=== PATIENT | female | born 1980 | race Caucasian/White ===

== ENCOUNTER 2020-09-10 00:37 | Emergency (ER) | payer SELFPAY ==
--- NOTE | 2020-09-10 01:09 | ERPHSYRPT ---
- History of Present Illness Source: patient Exam Limitations: no limitations Patient Subjective Stated Complaint: pt states she had an arguement with her ex earlier this evening and has been having thoughts of hurting herself. denies having a plan. also c/o pain in her rt ovary Triage Nursing Assessment: pt alert and oriented, answers questions approp. pt brought in by law enforcement.pt ambualted into room with steady gait noted. respirations nonlabored with lungs cta. pt tearful at times. skin warm and dry. Timing/Duration: yesterday Severity of Symptoms-Max: moderate Severity of Symptoms-Current: moderate Context related to: significant other Suicidal thoughts: other (Suicidal ideation) Previous symptoms: no prior history Hx Tetanus, Diphtheria Vaccination/Date Given: Yes Hx Influenza Vaccination/Date Given: No Hx Pneumococcal Vaccination/Date Given: No Immunizations Up to Date: Yes - History of Present Illness Time Seen by Provider: 09/10/20 01:09 Physician History: This is a 39-year-old white female who was in an argument with her ex and threatened to harm herself. She has had suicidal ideations. According to family members she was going to take a large number of pills. Patient denies this. However we did get a call from another family member that stated there was several ibuprofen missing from the bottle. When confronted with the possibility of this the patient denies ingestion of any medication or pills. Patient states that she took 3 ibuprofen 200 mg for the right ovarian pain and a single melatonin to help with sleep. Complains of some right ovarian pain. She is approximately 2 weeks out from her last menstrual period. Her appendix is still present. Patient has had a hysterectomy in the past. Patient was brought in by the Police Department. (SCOOBY RUIZ) Allergies/Adverse Reactions: No Known Drug Allergies Allergy (Verified 09/10/20 01:19) Home Medications: No Reportable Medications [No Reported Medications] 09/10/20 [History] Travel Risk - International Travel Have you traveled outside of the country in past 3 weeks: No - Coronavirus Screening Are you exhibiting any of the following symptoms?: No Close contact with a COVID-19 positive Pt in past 14-21 Days: No - Past Medical History Pertinent Past Medical History: Yes Neurological History: No Pertinent History ENT History: No Pertinent History Cardiac History: No Pertinent History Respiratory History: No Pertinent History Endocrine Medical History: No Pertinent History Musculoskeletal History: No Pertinent History GI Medical History: No Pertinent History History: No Pertinent History Psycho-Social History: No Pertinent History Female Reproductive Disorders: No Pertinent History Other Medical History: gi bleed last year - Past Surgical History Past Surgical History: Yes Neuro Surgical History: No Pertinent History Cardiac: No Pertinent History Respiratory: No Pertinent History Gastrointestinal: Cholecystectomy Genitourinary: No Pertinent History Musculoskeletal: No Pertinent History Female Surgical History: Hysterectomy - Social History Smoking Status: Never smoker Exposure to second hand smoke: No Drug Use: none Patient Lives Alone: Yes (staying with mom now) - Female History Hx Last Menstrual Period: hyster Hx Now: No - Review of Systems Constitutional: No Symptoms Eyes: No Symptoms Ears, Nose, & Throat: No Symptoms Respiratory: No Symptoms Cardiac: No Symptoms Abdominal/Gastrointestinal: No Symptoms Genitourinary Symptoms: No Symptoms Musculoskeletal: No Symptoms Skin: No Symptoms Neurological: No Symptoms Psychological: Depression, Suicidal Ideations Endocrine: No Symptoms Hematologic/Lymphatic: No Symptoms Immunological/Allergic: No Symptoms All Other Systems: Reviewed and Negative - Physical Exam General Appearance: no apparent distress, alert, anxiety Eyes, Ears, Nose, Throat Exam: normal ENT inspection, moist mucous membranes Neck Exam: normal inspection, non-tender, supple, full range of motion Respiratory Exam: normal breath sounds, lungs clear, airway intact, No chest tenderness, No respiratory distress Cardiovascular Exam: regular rate/rhythm, normal heart sounds, normal peripheral pulses Gastrointestinal/Abdominal Exam: soft, normal bowel sounds, tenderness (Right suprapubic region.) Extremities Exam: normal inspection, normal range of motion, No evidence of injury Current Suicidality: denies suicide plan Neurological Exam: alert, normal mood/affect, calm, communications attendant II-XII nml as tested, oriented x 3, agitated, anxious Appearance: appropriate appearance, appropriate insight, no memory impairment Behavior/Eye Contact/Speech: alert & cooperative, good eye contact Thoughts/Hallucinations: normal thought pattern, no apparent hallucination Skin Exam: normal color, warm, dry SpO2 Interpretation: normal SpO2: 97 O2 Delivery: Room Air - Nursing Vital Signs Nursing Vital Signs: Initial Vital Signs Temperature 98.1 F 09/10/20 00:41 Pulse Rate 103 H 09/10/20 00:41 Respiratory Rate 18 09/10/20 00:41 Blood Pressure 134/76 09/10/20 00:41 O2 Sat by Pulse Oximetry 97 09/10/20 00:41 Pain Scale Pain Intensity 0 - Course Nursing assessment & vital signs reviewed: Yes EKG Interpreted by Me: RATE (92), Sinus Rhythm, NORMAL AXIS, NORMAL INTERVALS, NORMAL QRS, Other (No comparison EKG available.) Ordered Tests: Active Orders 24 hr Category Date Time Status Clean Catch Urine Specimen STAT Care 09/10/20 01:11 Completed EKG-ER Only STAT Care 09/10/20 01:11 Completed IV Insertion STAT Care 09/10/20 01:10 Completed Psychiatric Consult STAT Cons 09/10/20 01:11 Completed ABDOMEN AND PELVIS W/0 CONTRAS [CT] Stat Exams 09/10/20 02:06 Completed ACETAMINOPHEN Stat Lab 09/10/20 01:45 Completed AMYLASE Stat Lab 09/10/20 01:45 Completed CBC W DIFF Stat Lab 09/10/20 01:45 Completed CMP Stat Lab 09/10/20 01:45 Completed ETHYL ALCOHOL Stat Lab 09/10/20 01:45 Completed HCG,QUALITATIVE URINE Stat Lab 09/10/20 02:13 Completed LIPASE Stat Lab 09/10/20 01:45 Completed Lactic Acid Stat Lab 09/10/20 01:45 Completed SALICYLATE Stat Lab 09/10/20 01:45 Completed UA W/RFX UR CULTURE Stat Lab 09/10/20 02:13 Completed Urine Triage Profile Stat Lab 09/10/20 02:13 Completed Medication Summary Discontinued Medications Generic Name Dose Route Start Last Admin Trade Name Tipq PRN Reason Stop Dose Admin Acetaminophen 650 mg 09/10/20 04:56 09/10/20 04:59 Tylenol 325 Mg PO 09/10/20 04:57 650 mg STAT STA Administration Acetaminophen Confirm 09/10/20 04:58 Tylenol 325 Mg Administered 09/10/20 04:59 Dose 650 mg .ROUTE .STK-MED ONE Hydromorphone HCl 1 mg 09/10/20 01:10 09/10/20 02:06 Hydromorphone 1 Mg/Ml Injection IV 09/10/20 01:11 1 mg STAT ONE Administration Hydromorphone HCl Confirm 09/10/20 01:55 Hydromorphone 1 Mg/Ml Injection Administered 09/10/20 01:56 Dose 1 mg .ROUTE .STK-MED ONE Sodium Chloride 1,000 mls @ 999 mls/hr 09/10/20 01:10 09/10/20 08:22 Sodium Chloride 0.9% 1000 Ml IV 09/10/20 02:10 Infused .Q1H1M STA Infusion Sodium Chloride Confirm 09/10/20 01:55 Sodium Chloride 0.9% 1000 Ml Administered 09/10/20 01:56 Dose 1,000 mls @ ud .ROUTE .STK-MED ONE Ondansetron HCl 4 mg 09/10/20 01:11 09/10/20 02:05 Zofran 4 Mg/2 Ml Vial IV 09/10/20 01:12 4 mg STAT ONE Administration Ondansetron HCl 4 mg 09/10/20 01:10 09/10/20 02:04 Zofran 4 Mg/2 Ml Vial IV 09/10/20 01:11 Not Given STAT ONE Ondansetron HCl Confirm 09/10/20 01:55 Zofran 4 Mg/2 Ml Vial Administered 09/10/20 01:56 Dose 4 mg .ROUTE .STK-MED ONE Pantoprazole Sodium 40 mg 09/10/20 01:14 09/10/20 02:05 Protonix 40 Mg Iv IV 09/10/20 01:15 40 mg STAT ONE Administration Pantoprazole Sodium Confirm 09/10/20 01:55 Protonix 40 Mg Iv Administered 09/10/20 01:56 Dose 40 mg IV .STK-MED ONE Lab/Rad Data: Laboratory Result Diagrams 09/10/20 01:45 09/10/20 01:45 Laboratory Results 09/10/20 09/10/20 09/10/20 Range/Units 02:13 02:13 02:13 WBC (4.0-10.5) K/mm3 RBC (4.1-5.4) M/mm3 Hgb (12.0-16.0) gm/dl Hct (35-47) % MCV (78-100) fl MCH (26-32) pg MCHC (32-36) g/dl RDW (11.5-14.0) % Plt Count (150-450) K/mm3 MPV (7.5-11.0) fl Gran % (36.0-66.0) % Eos # (Auto) (0-0.5) Absolute Lymphs (auto) (1.0-4.6) Absolute Monos (auto) (0.0-1.3) Lymphocytes % (24.0-44.0) % Monocytes % (0.0-12.0) % Eosinophils % (0.00-5.0) % Basophils % (0.0-0.4) % Absolute Granulocytes (1.4-6.9) Basophils # (0-0.4) Sodium (137-145) mmol/L Potassium (3.5-5.1) mmol/L Chloride (98-107) mmol/L Carbon Dioxide (22-30) mmol/L Anion Gap (5-15) MEQ/L BUN (7-17) mg/dL Creatinine (0.52-1.04) mg/dL Estimated GFR ML/MIN Glucose (74-106) mg/dL Lactic Acid (0.4-2.0) Calcium (8.4-10.2) mg/dL Total Bilirubin (0.2-1.3) mg/dL AST (14-36) U/L ALT (0-35) U/L Alkaline Phosphatase (38-126) U/L Serum Total Protein (6.3-8.2) g/dL Albumin (3.5-5.0) g/dL Amylase (30-110) U/L Lipase (23-300) U/L Urine Color YELLOW (YELLOW) Urine Appearance SLIGHTLY CLOUDY (CLEAR) Urine pH 5.0 (5-6) Ur Specific [place] 1.024 (1.005-1.025) Urine Protein 30 (Negative) Urine Ketones NEGATIVE (NEGATIVE) Urine Blood NEGATIVE (0-5) Vega/ul Urine Nitrite NEGATIVE (NEGATIVE) Urine Bilirubin NEGATIVE (NEGATIVE) Urine Urobilinogen NEGATIVE (0-1) mg/dL Ur Leukocyte Esterase NEGATIVE (NEGATIVE) Urine WBC (Auto) 3-5 (0-5) /HPF Urine RBC (Auto) 0-2 (0-2) /HPF U Hyaline Cast (Auto) 26-50 (0-2) /LPF U Epithel Cells (Auto) RARE (FEW) /HPF Urine Bacteria (Auto) RARE (NEGATIVE) /HPF Urine Mucus (Auto) SLIGHT (NEGATIVE) /HPF Urine Culture Reflexed NO (NO) Urine Glucose NEGATIVE (NEGATIVE) mg/dL Urine HCG, Qual NEGATIVE (Negative) Salicylates (2-20) mg/dL Urine Opiates Level NEGATIVE (NEGATIVE) Ur Methadone NEGATIVE (NEGATIVE) Acetaminophen (10-30) ug/ml Urine Barbiturates NEGATIVE (NEGATIVE) Ur Phencyclidine (PCP) NEGATIVE (NEGATIVE) Urine Amphetamine NEGATIVE (NEGATIVE) U Benzodiazepine Level NEGATIVE (NEGATIVE) Urine Cocaine NEGATIVE (NEGATIVE) Urine Marijuana (THC) NEGATIVE (NEGATIVE) Ethyl Alcohol (0-10) mg/dL 09/10/20 09/10/20 09/10/20 Range/Units 01:45 01:45 01:45 WBC (4.0-10.5) K/mm3 RBC (4.1-5.4) M/mm3 Hgb (12.0-16.0) gm/dl Hct (35-47) % MCV (78-100) fl MCH (26-32) pg MCHC (32-36) g/dl RDW (11.5-14.0) % Plt Count (150-450) K/mm3 MPV (7.5-11.0) fl Gran % (36.0-66.0) % Eos # (Auto) (0-0.5) Absolute Lymphs (auto) (1.0-4.6) Absolute Monos (auto) (0.0-1.3) Lymphocytes % (24.0-44.0) % Monocytes % (0.0-12.0) % Eosinophils % (0.00-5.0) % Basophils % (0.0-0.4) % Absolute Granulocytes (1.4-6.9) Basophils # (0-0.4) Sodium 137 (137-145) mmol/L Potassium 3.3 L (3.5-5.1) mmol/L Chloride 102 (98-107) mmol/L Carbon Dioxide 28 (22-30) mmol/L Anion Gap 10.3 (5-15) MEQ/L BUN 10 (7-17) mg/dL Creatinine 0.74 (0.52-1.04) mg/dL Estimated GFR > 60.0 ML/MIN Glucose 110 H (74-106) mg/dL Lactic Acid 2.2 H (0.4-2.0) Calcium 9.6 (8.4-10.2) mg/dL Total Bilirubin 0.60 (0.2-1.3) mg/dL AST 29 (14-36) U/L ALT 32 (0-35) U/L Alkaline Phosphatase 61 (38-126) U/L Serum Total Protein 8.1 (6.3-8.2) g/dL Albumin 4.5 (3.5-5.0) g/dL Amylase 55 (30-110) U/L Lipase 81 (23-300) U/L Urine Color (YELLOW) Urine Appearance (CLEAR) Urine pH (5-6) Ur Specific [place] (1.005-1.025) Urine Protein (Negative) Urine Ketones (NEGATIVE) Urine Blood (0-5) Vega/ul Urine Nitrite (NEGATIVE) Urine Bilirubin (NEGATIVE) Urine Urobilinogen (0-1) mg/dL Ur Leukocyte Esterase (NEGATIVE) Urine WBC (Auto) (0-5) /HPF Urine RBC (Auto) (0-2) /HPF U Hyaline Cast (Auto) (0-2) /LPF U Epithel Cells (Auto) (FEW) /HPF Urine Bacteria (Auto) (NEGATIVE) /HPF Urine Mucus (Auto) (NEGATIVE) /HPF Urine Culture Reflexed (NO) Urine Glucose (NEGATIVE) mg/dL Urine HCG, Qual (Negative) Salicylates < 1.0 L (2-20) mg/dL Urine Opiates Level (NEGATIVE) Ur Methadone (NEGATIVE) Acetaminophen < 10 L (10-30) ug/ml Urine Barbiturates (NEGATIVE) Ur Phencyclidine (PCP) (NEGATIVE) Urine Amphetamine (NEGATIVE) U Benzodiazepine Level (NEGATIVE) Urine Cocaine (NEGATIVE) Urine Marijuana (THC) (NEGATIVE) Ethyl Alcohol < 10 (0-10) mg/dL 09/10/20 Range/Units 01:45 WBC 9.9 (4.0-10.5) K/mm3 RBC 4.62 (4.1-5.4) M/mm3 Hgb 15.2 (12.0-16.0) gm/dl Hct 43.1 (35-47) % MCV 93.3 (78-100) fl MCH 32.9 H (26-32) pg MCHC 35.3 (32-36) g/dl RDW 12.2 (11.5-14.0) % Plt Count 281 (150-450) K/mm3 MPV 11.0 (7.5-11.0) fl Gran % 80.8 H (36.0-66.0) % Eos # (Auto) 0.08 (0-0.5) Absolute Lymphs (auto) 1.10 (1.0-4.6) Absolute Monos (auto) 0.72 (0.0-1.3) Lymphocytes % 11.1 L (24.0-44.0) % Monocytes % 7.2 (0.0-12.0) % Eosinophils % 0.8 (0.00-5.0) % Basophils % 0.1 (0.0-0.4) % Absolute Granulocytes 8.03 H (1.4-6.9) Basophils # 0.01 (0-0.4) Sodium (137-145) mmol/L Potassium (3.5-5.1) mmol/L Chloride (98-107) mmol/L Carbon Dioxide (22-30) mmol/L Anion Gap (5-15) MEQ/L BUN (7-17) mg/dL Creatinine (0.52-1.04) mg/dL Estimated GFR ML/MIN Glucose (74-106) mg/dL Lactic Acid (0.4-2.0) Calcium (8.4-10.2) mg/dL Total Bilirubin (0.2-1.3) mg/dL AST (14-36) U/L ALT (0-35) U/L Alkaline Phosphatase (38-126) U/L Serum Total Protein (6.3-8.2) g/dL Albumin (3.5-5.0) g/dL Amylase (30-110) U/L Lipase (23-300) U/L Urine Color (YELLOW) Urine Appearance (CLEAR) Urine pH (5-6) Ur Specific [place] (1.005-1.025) Urine Protein (Negative) Urine Ketones (NEGATIVE) Urine Blood (0-5) Vega/ul Urine Nitrite (NEGATIVE) Urine Bilirubin (NEGATIVE) Urine Urobilinogen (0-1) mg/dL Ur Leukocyte Esterase (NEGATIVE) Urine WBC (Auto) (0-5) /HPF Urine RBC (Auto) (0-2) /HPF U Hyaline Cast (Auto) (0-2) /LPF U Epithel Cells (Auto) (FEW) /HPF Urine Bacteria (Auto) (NEGATIVE) /HPF Urine Mucus (Auto) (NEGATIVE) /HPF Urine Culture Reflexed (NO) Urine Glucose (NEGATIVE) mg/dL Urine HCG, Qual (Negative) Salicylates (2-20) mg/dL Urine Opiates Level (NEGATIVE) Ur Methadone (NEGATIVE) Acetaminophen (10-30) ug/ml Urine Barbiturates (NEGATIVE) Ur Phencyclidine (PCP) (NEGATIVE) Urine Amphetamine (NEGATIVE) U Benzodiazepine Level (NEGATIVE) Urine Cocaine (NEGATIVE) Urine Marijuana (THC) (NEGATIVE) Ethyl Alcohol (0-10) mg/dL - Progress Progress: unchanged, re-examined Counseled pt/family regarding: lab results, diagnosis, rad results - Progress Progress Note: 09/10/20 03:00 CAT scan of the abdomen pelvis without contrast reveals no acute intra-abdominal or intrapelvic inflammatory process. There is no acute intra-abdominal process present. 09/10/20 06:46 Medical decision making: This patient has suicidal ideation. She does not have a specific plan. However, she did tell her family that she may hang herself or take a bunch of pills. Family was concerned that she might have taken multiple ibuprofen because there was a bottle open and several ibuprofen were missing. However the patient denies this. Poison Control Center was consulted and patient was to be observed in the emergency department for 6 hours from the time of patient arrival here to the emergency department. If medically cleared after that point, which she is now, we can seek placement of the patient into an inpatient psychiatric facility. We will place her under emergency intermediate. Transfer of care to Dr. Middleton at shift change. He will make final disposition (SCOOBY RUIZ) 09/10/20 08:45 Dr. Serrano at [facility] accepted pt. NINA papers sent to to sign. Pt became somewhat upset when I talked to her at shift change because she did not want to go to a psychiatric facility and denied suicidal ideation. According to Dr. Ruiz/staff, pt expressed suicidal ideations upon presentation. 09/10/20 13:17 NINA signed by . Pt stable when care assumed by ambulance service. (KATELYN MIDDLETON) - Departure Departure Disposition: Transfer Critical Care Time: No - Departure Clinical Impression: Suicidal ideation Condition: Stable Referrals: DOCTOR,NO FAMILY [Primary Care Provider] -
[2020-09-10] MEDS ORDERED: Hydromorphone 1 mg/ml Injection IV ONE (01:10)
[2020-09-10] MEDS ORDERED: Sodium Chloride 0.9% 1000 ML 1,000 ML IV STA (01:10)
[2020-09-10] MEDS ORDERED: Zofran 4 MG/2 ML VIAL IV ONE ×2 (01:10→01:11)
[2020-09-10] MEDS ORDERED: PROTONIX 40 MG IV IV ONE ×2 (01:14→01:55)
[2020-09-10 01:51] LABS: Absolute Neutrophil Ct (ANC) 8.03 (1.4-6.9); BASOPHIL % 0.1 % (0.0-0.4); Basophil (Absolute #) 0.01 (0-0.4); Eosinophil % 0.8 % (0.00-5.0); Eosinophil (Absolute #) 0.08 (0-0.5); Hematocrit 43.1 % (35-47); Hemoglobin 15.2 gm/dl (12.0-16.0); Lymphocytes % 11.1 % (24.0-44.0); Mean Cell Volume 93.3 fl (78-100); Mean Corpuscular Hemoglobin 32.9 pg (26-32); Mean Corpuscular Hgb Concent. 35.3 g/dl (32-36); Monocyte (Absolute #) 0.72 (0.0-1.3); Monocytes % 7.2 % (0.0-12.0); Neutrophil % 80.8 % (36.0-66.0); Platelet Count 281 K/mm3 (150-450); Red Blood Count 4.62 M/mm3 (4.1-5.4); Red Cell Distribution Width 12.2 % (11.5-14.0); White Blood Count 9.9 K/mm3 (4.0-10.5)
[2020-09-10] MEDS ORDERED: Sodium Chloride 0.9% 1000 ML 1,000 ML ONE (01:55)
[2020-09-10] MEDS ORDERED: Zofran 4 MG/2 ML VIAL ONE (01:55)
[2020-09-10] MEDS ORDERED: Hydromorphone 1 mg/ml Injection ONE (01:55)
[2020-09-10 02:11] LABS: ALBUMIN 4.5 g/dL (3.5-5.0); ALKALINE PHOSPHATASE 61 U/L (38-126); AMYLASE 55 U/L (30-110); ANION GAP 10.3 MEQ/L (5-15); BLOOD UREA NITROGEN 10 mg/dL (7-17); CHLORIDE 102 mmol/L (98-107); Calcium 9.6 mg/dL (8.4-10.2); Carbon Dioxide 28 mmol/L (22-30); Creatinine 1 0.74 mg/dL (0.52-1.04); EST GLOMERULAR FILTRATION RATE > 60.0 ML/MIN; Glucose 110 mg/dL (74-106); LIPASE 81 U/L (23-300); Potassium 3.3 mmol/L (3.5-5.1); SGOT/AST 29 U/L (14-36); SGPT/ALT 32 U/L (0-35); SODIUM 137 mmol/L (137-145); Total Protein 8.1 g/dL (6.3-8.2)
[2020-09-10 02:19] LABS: ACETAMINOPHEN < 10 ug/ml (10-30); ETHYL ALCOHOL < 10 mg/dL (0-10); SALICYLATE < 1.0 mg/dL (2-20)
[2020-09-10 02:22] LABS: Appearance SLIGHTLY CLOUDY (CLEAR); Bacteria RARE /HPF (NEGATIVE); Bilirubin NEGATIVE (NEGATIVE); Blood NEGATIVE Ery/ul (0-5); Epithelial Cells RARE /HPF (FEW); Glucose NEGATIVE (NEGATIVE); Hyaline Casts 26-50 /LPF (0-2); Ketones NEGATIVE (NEGATIVE); Leukocyte Esterase NEGATIVE (NEGATIVE); Mucus SLIGHT /HPF (NEGATIVE); Nitrite NEGATIVE (NEGATIVE); Protein,Urine Dip 30 (Negative); RBC 0-2 /HPF (0-2); Specific Gravity 1.024 (1.005-1.025); Urobilinogen NEGATIVE mg/dL (0-1)
[2020-09-10 02:34] LABS: Amphetamine,Urine NEGATIVE (NEGATIVE); Barbiturate,Urine NEGATIVE (NEGATIVE); Benzodiazepine,Urine NEGATIVE (NEGATIVE); Cocaine,Urine NEGATIVE (NEGATIVE); Methadone,Urine NEGATIVE (NEGATIVE); Opiate,Urine NEGATIVE (NEGATIVE); PCP,Urine NEGATIVE (NEGATIVE); THC,Urine NEGATIVE (NEGATIVE)
[2020-09-10] MEDS ORDERED: TYLENOL 325 MG PO STA (04:56)
[2020-09-10] MEDS ORDERED: TYLENOL 325 MG ONE (04:58)
[2020-09-10 07:11] VITALS: PULSE 86; O2SAT 98
[2020-09-10 08:28] VITALS: BP 134/112
--- NOTE | 2020-09-10 08:44 | XRAY ---
Indication: Right lower quadrant pain. Multiple contiguous axial images obtained through the abdomen and pelvis without contrast as ordered. Comparison: None Lung bases are clear. Heart is not enlarged. Stomach is distended with food/fluid. Noncontrasted stomach and bowel loops appear nonobstructed. Normal air-filled appendix. Previous hysterectomy and cholecystectomy. No free fluid/air. Remaining liver, pancreas, spleen, adrenal glands, kidneys, ureters, bladder, and aorta appear unremarkable for noncontrast exam. Osseous structures intact with L5-S1 broad-based degenerative disc bulge with vacuum disc phenomena. No ventral or inguinal hernias. Impression: 1. L5-S1 degenerative disc disease better evaluated with outpatient MRI if clinically warranted. 2. Remaining CT abdomen/pelvis without contrast exam is negative. Comment: Preliminary interpretation was made by [facility]. No critical discrepancy.
== END 2020-09-10 11:00 | disposition short-term general hospital (02) ==
LOC: ED 00:37
DX: R45.851 Suicidal ideations (principal)
CPT/HCPCS: 36000; 36415; 74176; 80053; 80307; 81001; 82150; 83605; 83690; 84703; 85025; 93005; 96360; 96374; 96375; 99285; J1170; J2405; A9270-GY; G0480